=== PATIENT | male | born 1995 | race Native Hawaiian/Other Pacific Islander ===

== ENCOUNTER 2017-06-06 03:04 | Inpatient (IN) | payer OTHER ==
[2017-06-06 03:40] LABS: HEMATOCRIT 46.2 % (42.0-52.0); MEAN CORPUSCULAR HEMOGLOBIN 30.5 pg (27.0-33.0); MEAN CORPUSCULAR HGB CONC 34.6 g/dl (32.0-36.5); PLATELET COUNT, AUTOMATED 240 10^3/uL (150-450); RED BLOOD COUNT 5.25 10^6/uL (4.30-6.10); RED CELL DISTRIBUTION WIDTH 12.2 % (11.5-14.5); WHITE BLOOD COUNT 7.2 10^3/uL (4.0-10.0)
[2017-06-06 04:00] LABS: AMPHETAMINES LEVEL URINE NEGATIVE (NEGATIVE); BARBITURATES URINE NEGATIVE (NEGATIVE); BENZODIAZEPINES URINE NEGATIVE (NEGATIVE); CANNABINOIDS URINE NEGATIVE (NEGATIVE); COCAINE METABOLITE URINE NEGATIVE (NEGATIVE); METHADONE URINE NEGATIVE (NEGATIVE); OPIATES URINE NEGATIVE (NEGATIVE); PHENCYCLIDINE URINE NEGATIVE (NEGATIVE)
[2017-06-06 04:02] LABS: ALBUMIN 4.4 GM/DL (3.2-5.2); ALBUMIN/GLOBULIN RATIO 1.52 (1.00-1.93); ALKALINE PHOSPHATASE 81 U/L (45-117); ALT/SGPT 23 U/L (12-78); ANION GAP 10 MEQ/L (8-16); AST/SGOT 17 U/L (7-37); BILIRUBIN,DIRECT 0.2 MG/DL (0.0-0.2); BILIRUBIN,TOTAL 0.9 MG/DL (0.2-1.0); BLOOD UREA NITROGEN 12 MG/DL (7-18); CALCIUM LEVEL 8.6 MG/DL (8.5-10.1); CARBON DIOXIDE LEVEL 25 MEQ/L (21-32); CHLORIDE LEVEL 106 MEQ/L (98-107); CREATININE FOR GFR 0.89 MG/DL (0.70-1.30); ETHYL ALCOHOL (ETHANOL) 0.008 % (0.000-0.010); GLUCOSE, FASTING 115 MG/DL (70-105); SALICYLATE LEVEL < 1.7 MG/DL (5.0-30.0); SODIUM LEVEL 141 MEQ/L (136-145); TOTAL PROTEIN 7.3 GM/DL (6.4-8.2)
[2017-06-06 04:06] LABS: ACETAMINOPHEN LEVEL < 2.0 UG/ML (10.0-30.0)
[2017-06-06] MEDS ORDERED: MAALOX 30 ML SUSP *UDC PO (10:00)
[2017-06-06] MEDS ORDERED: MOM 30ML SUSPENSION UDC PO (10:00)
[2017-06-06] MEDS ORDERED: ACETAMINOPHEN TAB 650MG DOSE (2X325MG) PO (10:00)
[2017-06-06] MEDS: SERTRALINE HCL 50 MG TAB PO (10:33)
[2017-06-06] MEDS ORDERED: LORazepam 1 MG TAB PO (17:00)
[2017-06-06] MEDS: hydrOXYzine 50 MG TAB PO (17:33)
[2017-06-06] MEDS: traZODone 50 MG TAB PO (20:39)
[2017-06-07] MEDS: SERTRALINE HCL 50 MG TAB PO (08:47)
[2017-06-07] MEDS ORDERED: LORazepam 1 MG TAB PO (13:45)
[2017-06-07] MEDS: hydrOXYzine 50 MG TAB PO (15:14)
[2017-06-07] MEDS: traZODone 50 MG TAB PO (22:01)
[2017-06-08] MEDS: SERTRALINE HCL 25 MG TABLET PO (08:27)
[2017-06-08] MEDS: hydrOXYzine 50 MG TAB PO ×2 (14:44→22:46)
[2017-06-08] MEDS: LORazepam 1 MG TAB PO ×2 (16:42→22:07)
[2017-06-08] MEDS: QUEtiapine FUMARATE 100 MG TAB PO (22:08)
[2017-06-09] MEDS: LORazepam 1 MG TAB PO ×3 (08:21→20:37)
[2017-06-09] MEDS: SERTRALINE 100 MG TAB PO (08:22)
[2017-06-09] MEDS: hydrOXYzine 50 MG TAB PO (12:20)
[2017-06-09] MEDS: QUEtiapine FUMARATE 100 MG TAB PO (20:37)
[2017-06-10] MEDS: SERTRALINE 100 MG TAB PO (06:52)
[2017-06-10] MEDS: LORazepam 1 MG TAB PO ×3 (06:52→21:31)
[2017-06-10] MEDS: QUEtiapine FUMARATE 100 MG TAB PO (21:31)
[2017-06-11] MEDS: MUPIROCIN 2% OINT 22 GM TUBE TOP (08:15)
[2017-06-11] MEDS: LORazepam 1 MG TAB PO ×3 (08:15→22:10)
[2017-06-11] MEDS: SERTRALINE 100 MG TAB PO (08:15)
[2017-06-11] MEDS: QUEtiapine FUMARATE 100 MG TAB PO (22:10)
[2017-06-12] MEDS: SERTRALINE 100 MG TAB PO (08:25)
[2017-06-12] MEDS: LORazepam 1 MG TAB PO ×3 (08:25→20:57)
[2017-06-12] MEDS: QUEtiapine FUMARATE 100 MG TAB PO (20:57)
[2017-06-13] MEDS: LORazepam 1 MG TAB PO ×2 (08:27→22:04)
[2017-06-13] MEDS: SERTRALINE 100 MG TAB PO (08:27)
[2017-06-13] MEDS: hydrOXYzine 50 MG TAB PO (16:08)
[2017-06-13] MEDS: QUEtiapine FUMARATE 100 MG TAB PO ×2 (22:04→22:10)
[2017-06-14] MEDS: SERTRALINE 100 MG TAB PO (08:39)
[2017-06-14] MEDS: QUEtiapine FUMARATE 100 MG TAB PO (20:58)
== END 2017-06-15 07:30 | DRG 885 ==
LOC: M ED 03:04 → M ED INP 06:00 → M PSY 07:35
DX: F33.2 Major depressive disorder, recurrent severe without psychotic features (principal); R45.851 Suicidal ideations; S21.91XA Laceration without foreign body of unspecified part of thorax, initial encounter; F60.3 Borderline personality disorder; F43.9 Reaction to severe stress, unspecified; Y93.89 Activity, other specified; X78.1XXA Intentional self-harm by knife, initial encounter